=== PATIENT | female | born 1970 | race Caucasian/White ===

== ENCOUNTER 2017-04-19 18:55 | Emergency (ER) | payer OTHER ==
[~2017-04-19] VITALS: Ht 165.1 cm; Wt 80.0 kg
[2017-04-19 19:11] VITALS: Ht 165.1 cm; Wt 80.0 kg
--- NOTE | 2017-04-19 20:45 | ERD ---
ER Documentation Chief Complaint Date/Time DATE: 04/19/17 TIME: 20:40 Chief Complaint headache x 2 weeks, also c/o bilateral eye pain x 2 months HPI 46-year-old female presents to the emergency department for occipital headache for about 2 weeks. Stated that her headache started gradually with unknown specific date/day and time of onset. Pain was described as pressure that radiates to bilateral eyes. Denies that this is the worst headache of her life, head injury, loss of consciousness, dizziness, blurry vision, changes in vision, pain and eye movement, photophobia, facial pain, sinus pain, ear pain, throat pain, difficulty swallowing, neck pain, neck stiffness, shoulder pain, chest pain, cough, hemoptysis, abdominal pain, back pain, loss of appetite, nausea, vomiting , hematochezia, diarrhea, constipation, urinary symptoms, , the possibility of being , bladder and bowel incontinences, extremity weakness, extremity tenderness, numbness or tingling sensation, difficulty walking, recent travel, injury, trauma, falls, recent exposure to illness, recent antibiotic use in the last 3 months, fever, chills. No known drug allergies. No past medical history. Surgical history: Hysterectomy Medication: Not taking any prescription medication. Stated her family has history of hyperlipidemia and hypertension but no stroke/ heart attack before the age of 50. Social history: Works at the [employer]. Quit smoking cigarettes about a year ago. Denies use of alcoholic beverages, use of illegal drugs. ROS All systems reviewed and are negative except as per history of present illness. Medications Home Meds Active Scripts Cyclobenzaprine Hcl* (Cyclobenzaprine Hcl*) 10 Mg Tablet, 10 MG PO TID, #15 TAB Prov:CARTER SHRESTHA Neto 04/19/17 Allergies Allergies: Coded Allergies: No Known Drug Allergies (Verified Allergy, Unknown, 04/19/17) PMhx/Soc Medical and Surgical Hx: pt denies Medical Hx, pt denies Surgical Hx History of Surgery: No Anesthesia Reaction: No Hx Neurological Disorder: No Hx Respiratory Disorders: No Hx Cardiac Disorders: No Hx Psychiatric Problems: No Hx Miscellaneous Medical Probl: No Hx Alcohol Use: No Hx Substance Use: No Hx Tobacco Use: No Smoking Status: Never smoker Physical Exam Vitals Vital Signs Date Time Temp Pulse Resp B/P Pulse Ox O2 Delivery O2 Flow Rate FiO2 04/19/17 19:11 98.5 72 20 139/68 98 Physical Exam CONSTITUTIONAL: Well-appearing; well-nourished; in no apparent distress. HEAD: Normocephalic; atraumatic. EYES: Conjunctiva clear, sclera non-icteric, EOM bilateral eyes are within normal limits. PERRLA. There is no pain on eye movement. Ears: Hearing intact. EACs clear, TMs non-bulging, non-inflamed, translucent & mobile, ossicles normal appearance, No obstructions, no erythema, no discharges Nose: No obstructions. No polyps. No external lesions. Mucosa non-inflamed. No external lesions, septum and turbinates normal. No rhinorrhea. No discharges. Frontal sinus is non-tender to palpation. Maxillary sinus is non-tender to palpation. MOUTH: Moist mucous membranes, no lesion, no obstructions, no vesicles, no thrush, patent airway Throat: Uvula in midline. Right tonsil is +1 with no erythema, no exudate. Left tonsil is +1 with no erythema, no exudate. Tolerating secretions well. Good gag reflex. Patent airway. Neck: Supple, without lesions, bruits, or adenopathy. No mass. Thyroid non- enlarged and non-tender to palpation. C-spine has no deformity/swelling/ discoloration. Good and full range of motion of neck and spine without tenderness. CHEST: Symmetrical chest. Respirations even and not labored. No retractions noted. CARDIOVASCULAR: Normal S1, S2. RRR. No murmurs, gallops. RESPIRATORY: Normal chest excursion with respiration; breath sounds clear and equal bilaterally; no wheezes, rhonchi, or rales. Breathing even and unlabored. Speaking in clear, full, and complete sentences w/ ease. ABDOMEN: Normal bowel sounds normal. Soft, round, non-distended, non-guarding, no tenderness, no rebound, no organomegaly, no masses, no pulsating abdominal mass. No hernia. No peritoneal signs. : No CVA tenderness. BACK: Symmetrical shoulder. Spine is midline without deformity, tenderness. No evidence of trauma or deformity. PELVIS: Stable pelvis. No evidence of trauma or deformity. MUSCULOSKELETAL: Normal gait and station. No misalignment, asymmetry, crepitation, defects, tenderness, masses, effusions, decreased range of motion, instability, atrophy or abnormal strength or tone in the head, neck, spine, ribs , pelvis or extremities. Noted mild supraspinatus tenderness to the right upper back and left upper back to deep palpation. T-spine/L-spine has no swelling/deformity/discoloration and is good and full range of motion without difficulty and pain. No calf tenderness. NEUROVASCULAR: Distal pulses are present. Pedal pulse are present, equal, and normal. Capillary refills are < 2 seconds. NEUROLOGIC: Alert and oriented x4. Speaks full and clear sentences. Cranial Nerves II-XII normal. Sensation to pain, touch, and proprioception normal. Grossly unremarkable. No neurologic deficits. Romberg test is negative. PSYCHOLOGICAL: The patients mood and manner are appropriate. No hallucinations , delusions. Not SI. Not HI. Has the capacity to decide for self SKIN: Normal for age and ethnicity; warm; dry; good turgor; no apparent lesions or exudates. No rashes, hives, discoloration. Intact. Procedures/MDM Examination: Please see physical examination. Disease process, medical treatment was explained to the patient and family member. They verbalized understanding and agreed with the diagnostic tests, medical treatment, and follow-up care. Differential diagnosis: Subarachnoid hemorrhage versus stroke versus meningitis versus migraine versus tension headache versus cervical radicular pain versus torticollis versus sinus headache versus headache versus musculoskeletal spasms Re-evaluation: Denies headache, dizziness, blurry vision, neck pain, shoulder pain, chest pain, abdominal pain, back pain, loss of bowel and bladder control. Extraocular movement of the eyes is within normal limits. No pain on eye movement. Patient was observed reading, texting, and using her cell phone. Patient is able to tolerate one cup of water by mouth in the emergency department. No episode of emesis in the emergency department. Cranial nerves II through XII are intact. Romberg test is negative. No neurological deficits. No neurovascular deficits. Case was discussed with supervising emergency room physician, Dr. Artemio Canela. We both agreed that patient does not need a CT of the brain at this time due to the fact the patient has no neurological deficits, and due to the fact that patient's headache gradually increased and has no specific day/date and time of onset. Medical decision m[age]-year-old female presents to the emergency department for occipital headache for about 2 weeks. Stated that her headache started gradually with unknown specific date/day and time of onset. Pain was described as pressure that radiates to bilateral eyes. I have low suspicion for subarachnoid hemorrhage or stroke at this time due to the fact that the patient stated that her headache started gradually with unknown specific date/ day and time of onset and due to the fact that patient is no neurological deficit or no unilateral deficits in the physical examination. Patient's complaint, patient's history about her complaint, my physical findings, my reevaluation are consistent with my final diagnosis of tension headache, radicular pain, torticollis, musculoskeletal spasms. Medications prescribed are the following: Flexeril. Patient and family member are made aware of the side effects and adverse reactions of the medications prescribed. Instructed on when to seek emergent and medical attention in case allergic/anaphylactic reactions or severe side effects and or adverse reactions to medications. Patient and family member verbalized understanding. Patient instructed Instructed to follow-up with his PCP in 24-48 hours. PCP to refer patient to neurologist if symptoms get worse. Instructed to Call 911 for chest pain, shortness of breath. Advised to come back here in ED as soon as possible for severity of symptoms which includes but not limited to: any new symptoms; shortness of breath/difficulty of breathing; cardiovascular changes; severe gastrointestinal symptoms; signs and symptoms of bleeding and or infection; signs of compartment syndrome/neurovascular changes; neurological changes/deficits. Patient and family member verbalized understanding. Upon discharge, patient is alert and oriented x 4, speaks full and clear sentences, denies pain, has no neurological deficits, has no neurovascular deficits, difficulty of breathing. Breathing even and unlabored. Lung sounds are clear to auscultation. Not in distress. Appears comfortable. Ambulatory with steady gait. Appears satisfied with care provided here in ED. Departure Diagnosis: Primary Impression: Headache Additional Impressions: Torticollis Cervical radicular pain Muscle spasm Tension headache Condition: Stable Additional Instructions: Patient instructed Instructed to follow-up with his PCP in 24-48 hours. PCP to refer patient to neurologist if symptoms get worse. Instructed to Call 911 for chest pain, shortness of breath. Advised to come back here in ED as soon as possible for severity of symptoms which includes but not limited to: any new symptoms; shortness of breath/difficulty of breathing; cardiovascular changes; severe gastrointestinal symptoms; signs and symptoms of bleeding and or infection; signs of compartment syndrome/neurovascular changes; neurological changes/deficits. Patient and family member verbalized understanding. CARTER SHRESTHA April 19, 2017 20:45
[2017-04-19] MEDS ORDERED: CYCL-319 PO (20:47)
== END 2017-04-19 21:15 | disposition home or self-care (01) ==
LOC: FTE 18:55
DX: G44.209 Tension-type headache, unspecified, not intractable (principal); M43.6 Torticollis; M54.12 Radiculopathy, cervical region; M62.838 Other muscle spasm; Z87.891 Personal history of nicotine dependence
CPT/HCPCS: 99283